=== PATIENT | female | born 1955 | race Two or more races ===

== ENCOUNTER 2016-11-04 11:26 | Emergency (ER) | payer OTHER, MEDICAID ==
[~2016-11-04] VITALS: Ht 162.6 cm; Wt 113.4 kg
[2016-11-04] MEDS ORDERED: HYDROcodone-ACET 5/325MG TAB PO ONE (13:00)
[2016-11-04 13:16] VITALS: BP 156/87
== END 2016-11-04 13:42 | disposition home or self-care (01) ==
LOC: ER 11:26
DX: S52.571A Other intraarticular fracture of lower end of right radius, initial encounter for closed fracture (principal); S40.011A Contusion of right shoulder, initial encounter; E11.9 Type 2 diabetes mellitus without complications; E78.5 Hyperlipidemia, unspecified; I10 Essential (primary) hypertension; W18.39XA Other fall on same level, initial encounter; Y93.89 Activity, other specified; Y99.8 Other external cause status; Y92.512 Supermarket, store or market as the place of occurrence of the external cause
CPT/HCPCS: 29125; 73110